=== PATIENT | male | born 1945 | race Caucasian/White ===

== ENCOUNTER → 2018-10-21 10:41 | Outpatient (BNVA) | payer MEDICARE, SELFPAY | PROVIDERS: PCP Family Medicine; Visit Provider Urology | DX: N50.811 Right testicular pain (principal) | CPT/HCPCS: 99203 ==

== ENCOUNTER → 2019-02-25 08:59 | Outpatient (BNVA) | payer MEDICARE, SELFPAY | PROVIDERS: PCP Family Medicine; Visit Provider Urology | DX: N48.89 Other specified disorders of penis (principal) | CPT/HCPCS: 99213 ==

== ENCOUNTER 2021-09-24 10:34 | Outpatient (CLI) | payer MEDICARE, SELFPAY ==
[2021-09-24] MEDS: Inhaler, Assist Device 1 EACH MC (11:42)
[2021-09-24] MEDS: Albuterol HFA 18 GM 200 PUFF INH IH (11:42)
--- NOTE | 2021-09-24 13:46 | PFT_ITS ---
Date of service: 09/24/21 Time of Service: 09:57 Pulmonary Function Test Result Requesting Provider Saulo Indications: IPF Interpretation Spirometry: There is no airflow limitation. There is no significant bronchodilator effect. Lung Volumes: There is moderate restrictive disease Diffusion Capacity: The diffusion is reduced Airway Pressure: Airways resistance is normal Impression Moderate restrictive lung disease with a reduced diffusion. Note: When compared to 06/20/21 the FVC has improved. Compared to 03/21/21 the DL CO is unchanged. Clinical Correlation therefore is recommended.
== END 2021-09-24 10:35 | disposition home or self-care (01) ==
LOC: RT 10:52
PROVIDERS: PCP Family Medicine; Visit Provider Student in an Organized Health Care Education/Training Program
DX: J84.112 Idiopathic pulmonary fibrosis (principal); R06.09 Other forms of dyspnea; R94.2 Abnormal results of pulmonary function studies; Z83.6 Family history of other diseases of the respiratory system; Z77.098 Contact with and (suspected) exposure to other hazardous, chiefly nonmedicinal, chemicals
CPT/HCPCS: 94060; 94726; 94729

== ENCOUNTER 2021-09-24 10:59 | Outpatient (CLI) | payer MEDICARE, SELFPAY | END 2021-09-24 11:00 | disposition home or self-care (01) | PROVIDERS: PCP Family Medicine; Visit Provider Student in an Organized Health Care Education/Training Program | DX: J84.112 Idiopathic pulmonary fibrosis (principal) | CPT/HCPCS: 94762 ==

== ENCOUNTER 2022-06-30 03:35 | Outpatient (CLI) | payer MEDICARE, SELFPAY ==
[2022-06-30] MEDS: Albuterol HFA 18 GM 200 PUFF INH IH (14:53)
[2022-06-30] MEDS: Inhaler, Assist Device 1 EACH MC (14:54)
--- NOTE | 2022-07-02 09:54 | W.PFT ---
Date of service: 06/30/22 Time of Service: 13:17 Pulmonary Function Test Result Requesting Provider Christophhene Indications: IPF, YAN Interpretation Spirometry: There is no airflow limitation. There is no significant bronchodilator response. The FVC is low. Lung Volumes: There is moderate restrictive lung disease. Diffusion Capacity: The diffusion is reduced. Airway Pressure: Normal airways resistance. Impression There is moderate restrictive lung disease with a decreased diffusion. Note: When compared to 01/21/22, the FEV1 and FVC are stable. When compared to 09/24/21 the TLC is stable, however the diffusion has decreased significantly during this time from 13.44 to 9.52. Clinical Correlation therefore is recommended.
--- NOTE | 2022-07-02 09:59 | W.PFT ---
Date of service: 06/30/22 Time of Service: 14:04 Pulmonary Function Test Result Requesting Provider Saulo Indications: YAN Note: 6 Minute Walk Test Distance walked: 1300 feet (normal) Desaturations: 99% O2 at rest, desaturation to 91% at 2 minutes Heart rate changes: 91 bpm at rest, 116bpm at 5 minutes Recommendation: Does not qualify for exertional oxygen, however there is a clinically significant desaturation with exertion. Marimar Vernon MD Pulmonary & Critical Care Medicine Clinical Correlation therefore is recommended.
== END 2022-06-30 03:36 | disposition home or self-care (01) ==
LOC: RT 03:35
PROVIDERS: PCP Family Medicine; Visit Provider Student in an Organized Health Care Education/Training Program
DX: J84.112 Idiopathic pulmonary fibrosis (principal); R06.09 Other forms of dyspnea; J98.4 Other disorders of lung
CPT/HCPCS: 94060; 94726; 94729

== ENCOUNTER 2022-09-30 12:25 | Outpatient (REF) | payer MEDICARE, SELFPAY ==
--- NOTE | 2022-09-30 11:30 | SKI_PTH ---
PATIENT: Colin Hollingsworth LOC: [facility] U#:[id number] AGE/SX: 77/M ROOM: RE09/30/[address]: Chris Sims MD : [id number] BED: DIS: 09/30/2022 SPEC #: [id number] RECD: 09/30/22 16:57 STATUS: TRACIE REQ #: [id number] JOSEPH: 09/30/22 11:[address]: Chris Sims DEPT: Surgical Specimen RECD BY: Sasha Burgos ENTERED: 09/30/22 16:59 SP TYPE: NATASHA CHAKRABORTY DR: Jose Mike Tissues: 1 - SKIN BIOPSY(SHAVE/PUNCH) Procedures: SKIN LEVEL 4 Comments: [id number]
--- OUTSIDE RECORDS SUMMARY | 2022-09-30 12:27 | XMS_ITS | Continuity of Care Document ---
:1945 [address] [facility] Address [address] [place] [address] Care Team Providers Name Role Phone Jose Mike Primary Care Physician Encounter [facility] Date(s): 05/20/22 - 05/20/22 [facility] [address] [place] [address] Discharge Disposition: Home or Self Care Attending Physician: Ilir Collier Admitting Physician: Ilir Collier Referring Physician: Ilir Collier Allergies, Adverse Reactions, Alerts Substance Reaction Severity Status WHEAT Unknown Active MILK Unknown Active linaclotide Dizziness Unknown Active Linzess Dizziness Unknown Active Assessment and Plan Future Appointments Immunizations Given and Recorded Vaccine Date Status Refusal Reason SARS-CoV-2 (COVID-19) mRNA-1273 vaccine 12/10/21 Recorded SARS-CoV-2 (COVID-19) mRNA-1273 vaccine 06/25/21 Recorded SARS-CoV-2 (COVID-19) mRNA-1273 vaccine 10/24/20 Recorded SARS-CoV-2 (COVID-19) mRNA-1273 vaccine 09/24/20 Recorded influenza virus vaccine, inactivated 05/25/19 Recorded influenza virus vaccine, inactivated 06/04/17 Recorded influenza virus vaccine, inactivated 05/27/16 Recorded influenza virus vaccine, inactivated 07/06/15 Recorded influenza virus vaccine, inactivated 05/10/14 Recorded influenza virus vaccine, inactivated 06/10/13 Recorded influenza virus vaccine, inactivated 06/11/12 Recorded influenza virus vaccine, inactivated 06/06/11 Recorded influenza virus vaccine, inactivated 05/27/10 Recorded influenza virus vaccine, inactivated 09/18/09 Recorded influenza virus vaccine, inactivated 06/07/07 Recorded influenza, unspecified formulation1 05/27/18 Recorded pneumococcal 13-valent conjugate vaccine 12/28/15 Recorde d zoster vaccine live 12/03/11 Recorded tetanus/diphth/pertuss (Tdap) adult/adol 10/29/11 Recorde d pneumococcal 23-polyvalent vaccine 07/11/08 Recorded pneumococcal 23-polyvalent vaccine 07/24/02 Recorded 1Result 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 Medications amoxicillin 875 mg oral tablet 875 mg = 1 tab, Oral, BID, # 20 tab, 0 Refill(s), Pharmacy: [id number] Start Date: 02/26/22 Stop Date: 03/08/22 Status: Orderedascorbic acid 1000 mg oral tablet 1 tab, Oral, Daily, 0 Refill(s) Start Date: 01/08/22 Status: Orderedaspirin 81 mg oral capsule 1 tab, Oral, Daily, per pt, 0 Refill(s) Start Date: 01/08/22 Status: Orderedclobetasol 0.05% topical foam 1 shant, Topical, BID Start Date: 02/21/22 Status: OrderedEsbriet 267 mg oral tablet 267 mg = 1 tab, Oral, TID w/ Meals Start Date: 02/21/22 Status: OrderedLORazepam 0.5 mg oral tablet 0.5 mg = 1 tab, Oral, Daily, PRN as needed for anxiety, # 90 tab, 1 Refill(s), Pharmacy: [id number] Start Date: 04/11/22 Stop Date: 10/08/22 Status: Orderedmagnesium 400 mg (as magnesium oxide) tablet magnesium 400 mg (as magnesium oxide) tablet, 1 tab, OGT, Daily Start Date: 01/08/22 Status: OrderedMiraLax oral powder for reconstitution 17 g, Oral, Daily, as needed, 0 Refill(s) Start Date: 01/08/22 Status: OrderedMulti Vitamin+ Daily, 1 daily, 0 Refill(s) Start Date: 01/08/22 Status: Orderedmupirocin 2% topical ointment Start Date: 02/21/22 Status: OrderedOfev 100 mg oral capsule Oral Start Date: 02/21/22 Status: Orderedolopatadine 0.1% ophthalmic solution 1 drops, Eye-Both, Daily, 0 Refill(s) Start Date: 01/08/22 Status: OrderedProbiotic + Colostrum Oral, Daily, 0 Refill(s) Start Date: 01/08/22 Status: Ordered Problem List Condition Effective Dates Status Health Status Informant Cardiac arrhythmia(Confirmed) 06/30/18 Active Chronic constipation(Confirmed) Active Chronic fatigue syndrome(Confirmed) Active 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) Degeneration of intervertebral Active disc(Confirmed) Diarrhea(Confirmed) Active Dizziness and giddiness(Confirmed) Active Epididymitis(Confirmed) Active Generalized anxiety Active disorder(Confirmed) Hyperlipidemia(Confirmed) Active 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) Inflamed seborrheic Active keratosis(Confirmed) Irritable bowel syndrome(Confirmed) Active Long-term drug therapy(Confirmed) Active Malignant neoplasm of skin(Confirmed) Active Non-neoplastic nevus(Confirmed) Active Noninfectious Active gastroenteritis(Confirmed) Osteoarthritis of knee(Confirmed) Active Otalgia(Confirmed) 03/11/18 Active Pain in right knee(Confirmed) Active Palpitations(Confirmed) 07/07/18 Active Primary impotence(Confirmed) Active Raised prostate specific 04/18/21 Active antigen(Confirmed) Reduced libido(Confirmed) Active Sciatica(Confirmed) Active Sleep disorder(Confirmed) Active Procedures Procedure Date Related Diagnosis Body Site Status Colonoscopy1 01/20/19 Completed Turbinectomy2 05/25/17 Completed Lt. upper lid excision of [place] 08/23/13 Completed Aortic aneurysm screening3 07/18/08 C ompleted Vasectomy 1968 Completed Appendectomy4 Completed Circumcision5 Completed Knee surgery6 Completed Mohs 1 stage t/a/L7 Complete d 1Inflamed hyper plastic polyp 04-29-2011 incomplete colonoscopy with inablilty to pass scope past 70cm sent for Ba enema with no acute abnormality identified; 02/22/2007; 08/26/[id number] inferior turbinate using [id number] years ago.5post-[id number]. ACL, date [id number] Dermatology Mohs surgery Left lateral canthus Results Laboratory List Name Date PSA Diagnostic 05/20/22 Most recent to oldest [Reference Range]: 1 PSA Total Diagnostic [0.00-4.00 ng/mL] 4.37 ng/mL *HI* (05/20/22 11:59 AM) Social History Social History Type Response Smoking Status Smoking tobacco use: Never t obacco user; Never entered on: 02/26/22 Sex Male Patient Care team information PersonnelName: Jose Mike MD Address: Address: [id number] [place] [address]
== END 2022-09-30 12:26 | disposition home or self-care (01) ==
LOC: LBN 12:25
PROVIDERS: PCP Family Medicine; Visit Provider Otolaryngology
DX: L57.0 Actinic keratosis (principal); H61.892 Other specified disorders of left external ear
CPT/HCPCS: 88305

== ENCOUNTER → 2023-07-28 14:22 | Outpatient (BNVA) | payer MEDICARE, SELFPAY | PROVIDERS: PCP Family Medicine; Referring Provider Family Medicine; Visit Provider Physician Assistant Surgical | DX: J84.112 Idiopathic pulmonary fibrosis (principal); J32.9 Chronic sinusitis, unspecified; J96.91 Respiratory failure, unspecified with hypoxia | CPT/HCPCS: 99214 ==

== ENCOUNTER → 2024-01-26 13:30 | Outpatient (BNVA) | payer MEDICARE, SELFPAY | PROVIDERS: PCP Family Medicine; Referring Provider Family Medicine; Visit Provider Student in an Organized Health Care Education/Training Program | DX: J84.112 Idiopathic pulmonary fibrosis (principal); R93.89 Abnormal findings on diagnostic imaging of other specified body structures; J32.9 Chronic sinusitis, unspecified; J96.91 Respiratory failure, unspecified with hypoxia | CPT/HCPCS: 99215 ==

== ENCOUNTER → 2024-07-25 10:57 | Outpatient (BNVA) | payer MEDICARE, SELFPAY | PROVIDERS: PCP Family Medicine; Referring Provider Family Medicine; Visit Provider Physician Assistant Surgical | DX: J84.112 Idiopathic pulmonary fibrosis (principal); J32.9 Chronic sinusitis, unspecified; J96.91 Respiratory failure, unspecified with hypoxia; R93.89 Abnormal findings on diagnostic imaging of other specified body structures | CPT/HCPCS: 99214 ==

== ENCOUNTER → 2025-01-24 10:49 | Outpatient (BNVA) | payer MEDICARE, SELFPAY | PROVIDERS: PCP Family Medicine; Referring Provider Family Medicine; Visit Provider Physician Assistant Surgical | DX: J84.112 Idiopathic pulmonary fibrosis (principal); J32.9 Chronic sinusitis, unspecified; J96.91 Respiratory failure, unspecified with hypoxia; R93.89 Abnormal findings on diagnostic imaging of other specified body structures | CPT/HCPCS: 99214 ==

== ENCOUNTER → 2025-05-11 11:10 | Outpatient (BNVA) | payer MEDICARE, SELFPAY | PROVIDERS: PCP Family Medicine; Referring Provider Family Medicine; Visit Provider Internal Medicine Pulmonary Disease | DX: J84.112 Idiopathic pulmonary fibrosis (principal); R59.0 Localized enlarged lymph nodes; J96.91 Respiratory failure, unspecified with hypoxia; R91.8 Other nonspecific abnormal finding of lung field; Z87.891 Personal history of nicotine dependence | CPT/HCPCS: 99215 ==